=== PATIENT | male | born 1985 | race Caucasian/White ===

== ENCOUNTER 2017-04-17 21:13 | Emergency (ER) | payer BC ==
[~2017-04-17] VITALS: Ht 172.7 cm; Wt 75.0 kg
[2017-04-17] MEDS ORDERED: ZYRTEC1010 PO (22:47)
== END 2017-04-17 23:25 ==
LOC: EDMED 21:13
PROC: 0HQFXZZ Repair Right Hand Skin, External Approach (ICD-10-PCS; principal; 2017-04-17)
DX: S61.216A Laceration without foreign body of right little finger without damage to nail, initial encounter (principal); W26.8XXA Contact with other sharp object(s), not elsewhere classified, initial encounter; Y92.009 Unspecified place in unspecified non-institutional (private) residence as the place of occurrence of the external cause